=== PATIENT | male | born 2005 | race Caucasian/White ===

== ENCOUNTER 2025-06-15 10:47 | Emergency (ER) | payer OTHER, SELFPAY ==
--- OUTSIDE RECORDS SUMMARY | 2025-06-15 10:57 | XMS_ITS | Clinical Summary ---
Author Organization [facility] Address [address] [place] [id number] Care Team Providers Care Vamp Stitcher Name Role Phone CruzitoSilver Loc FRAZIER Primary Care Provider [phone] Rosemary Serna RN Unavailable [phone] Allergies No known active allergies Medications omeprazole (PRILOSEC) 20 MG capsule Take 1 capsule (20 mg total) by mouth daily. Active Active Problems Problem Noted Date Diagnosed Date Recurrent major depressive disorder, in full rem ission 12/13/2023 Neck pain 12/13/2023 Assessment & Plan (12/13/2023 1:58 PM CDT): ASSESSMENT: The patient's condition is new. PLAN: His neurological exam is nonfocal and he enjoys all activities. I await the results of his x-rays. Immunizations Immunization Administration Dates Next Due Meningococcal (ACWY) unspecified 01/23/2016 Tdap 01/23/2016 Social History Tobacco Use Types Packs/Day Years Used Date Smoking Tobacco: Never Passive Smoke Exposure: Never Smokeless Tobacco: Never Alcohol Use Standard Drinks/Week Comments Never 0 (1 standard drink = 0.6 oz pur e alcohol) [facility] Utilities Answer Date Recorded In the past 12 months has e electric, gas, oil, or water company threatened to shut off services in your home? No 12/13/2023 AUDIT-C Answer Date Recorded Q1: How often do you have a drink containing alcohol? Never 12/13/2023 Q2: How many drinks containi ng alcohol do you have on a typical day when you are drinking? Patient does not drink Q3: How often do you have si x or more drinks on one occasion? Never 12/13/2023 Overall Financial Resource Strain (CARDIA) Answe r Date Recorded How hard is it for you to pa y for the very basics like food, housing, medical care, and heating? Not hard at all 12/13/2023 Social Connections Answer Date Recorded Are you lonely most days? No 2023 Support System family 12/13/2023 Who would help you if you became ill or injured? family 12/13/2023 Depression Answer Date Recorded Patient Health Questionnaire-2 Score 0 12/13/2023 Last PHQ-9 Score Not on file 12/13/2023 Interpersonal Safety Answer Date Record ed Feels UN-safe at Home or Work/School no 12/13/2023 Feels Unsafe Not on file 12/13/2023 Physical Abuse Present Not on file Food Insecurity Answer Date Recorded Within the past 12 months, y ou worried that your food would run out before you got the money to buy more. Never true 12/13/19 24 Within the past 12 months, t he food you bought just didn't last and you didn't have money to get more. Never true 12/13/2023 Transportation Answer Date Recorded In the past 12 months, has l ack of transportation kept you from medical appointments or from getting medications? No 11/25 In the past 12 months, has l ack of transportation kept you from meetings, work, or from getting things needed for daily living? No 12/13/2023 Housing Stability Answer Date Recorded Homeless in the Last Year Not on file 2023 In the last 12 months, was t here a time when you were not able to pay the mortgage or rent on time? 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 Gender Identity Not on file Sexual Orientation Not on file Last Filed Vital Signs Vital Sign Reading Time Taken Comments Blood Pressure 124/70 12/13/2023 1:23 PM CDT Pulse 72 12/13/2023 1:23 PM CDT Temperature 36.2 C (97.2 F) 12/13/2023 1:23 PM CDT Respiratory Rate 16 12/13/2023 1:23 PM CDT Oxygen Saturation 99% 12/13/2023 1:23 PM CDT Inhaled Oxygen Concentration - - Weight 71.7 kg (158 lb) 12/13/2023 1:23 PM CDT Height 182.9 cm (6') 12/13/2023 1:23 PM CDT Body Mass Index 21.43 12/13/2023 1:23 PM CDT Plan of Treatment Health Maintenance Due Date Last Done Comments HPV Vaccines (1 - Male 3-dos e series) 2018 Meningococcal B Vaccine (1 o f 2 - Standard) 2019 Hepatitis B Vaccines (1 of 3 - 19+ 3-dose series) 2022 Lipid Screening 2023 Mood Screen 12/12/2024 12/13/2023 COVID-19 Vaccine (1 - 2024-2 6 season) 2025 Seasonal Influenza Vaccine (#1) 2025 Tetanus Booster Vaccines 01/22/2026 01/23/2016 Meningococcal (ACWY) Vaccines Aged Out 01/23/2016 No longer eligible based on patient's age to complete this topic Hepatitis A Vaccines Aged Out No long er eligible based on patient's age to complete this topic Hib Vaccines Aged Out No longer eligi ble based on patient's age to complete this topic Pediatric RSV Vaccines Aged Out No lo nger eligible based on patient's age to complete this topic Pneumococcal Vaccine (0-5y, or all patients at risk) Aged Out No longer eligible b ased on patient's age to complete this topic Polio Vaccines Aged Out No longer patricia gible based on patient's age to complete this topic Insurance [facility] Care Teams Vamp Stitcher Relationship Specialty Start Date End Date [place], DO [address] [facility] [address] [place] [address] PCP - General Family Medicine 12/13/23 Rosemary Serna RN [place] paste maker Longitudinal Care Management 06/05/24
[2025-06-15 11:00] VITALS: BP 130/71; PULSE 71; RESP 16; TEMP 36.7; O2SAT 100
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
== END 2025-06-15 11:45 | disposition home or self-care (01) ==
PROVIDERS: Emergency Provider Registered Nurse
DX: H00.022 Hordeolum internum right lower eyelid (principal)
CPT/HCPCS: 99203; G0463